=== PATIENT | male | born 1975 | race Caucasian/White ===

== ENCOUNTER 2017-07-25 16:13 | Emergency (ER) | payer OTHER ==
[2017-07-25 16:21] VITALS: BP 153/88; PULSE 74; RESP 18; TEMP 97.7; O2SAT 99
--- NOTE | 2017-07-25 16:44 | EDPHY ---
H & P Time Seen by Provider: 07/25/17 16:24 HPI/ROS: CHIEF COMPLAINT: Insomnia HISTORY OF PRESENT ILLNESS: Patient is a 41-year-old male with a history of schizophrenia and high cholesterol who presents emergency department with insomnia x3 nights. Patient states that he has only been able to sleep 3-5 hours per night. He thinks this is related to his recent weight loss. He has lost 50 lb to get to his current weight. Patient denies any stimulant use. He does not smoke. Denies alcohol use. Patient has no chest pain or shortness of breath. He has been taking his medications as directed REVIEW OF SYSTEMS: My complete review of systems is negative except as mentioned in the HPI. Past Medical/Surgical History: Includes schizophrenia, high cholesterol Past surgical history: Denies Social history: Patient does not smoke. Denies drugs or alcohol. Smoking Status: Never smoked Physical Exam: Vitals noted GENERAL: Well-appearing, in no acute distress, alert. HEENT: Eyes normal to inspection, normal pharynx, no signs of dehydration. NECK: [No thyromegaly, no lymphadenopathy, supple. RESPIRATORY: Clear to auscultation bilaterally, no rales, rhonchi or wheezing. CVS: Regular rate and rhythm, no rubs, murmurs, or gallops. ABDOMEN: Soft, nontender, nondistended, no organomegaly. BACK: Normal to inspection, no CVA tenderness. SKIN: Normal color, no rash, warm, dry. No pallor. EXTREMITIES: No pedal edema, no calf tenderness, no Homans sign or cords, no joint swelling. NEURO/PSYCH: Alert and oriented x3, normal mood and affect, normal motor sensory exam. No obvious cranial nerve deficit. Constitutional: Initial Vital Signs Temperature (C) 36.5 C 07/25/17 16:17 Heart Rate 74 07/25/17 16:17 Respiratory Rate 18 07/25/17 16:17 Blood Pressure 153/88 H 07/25/17 16:17 O2 Sat (%) 99 07/25/17 16:17 O2 Delivery Mode Room Air Allergies/Adverse Reactions: No Known Allergies Allergy (Verified 07/25/17 16:16) Home Medications: Medication Instructions Recorded Lurasidone HCl [Latuda] 80 mg PO 10/28/10 SIMVASTATIN [Zocor] 20 mg PO 10/28/10 clonazePAM [Klonopin] 1 mg PO 10/28/10 diphenhydrAMINE [Benadryl] 50 mg PO 10/28/10 Zoloft 100mg (*) 07/25/17 Zolpidem Tartrate [Ambien 5MG (*)] 5 mg PO HS #3 tab 07/25/17 Medical Decision Making ED Course/Re-evaluation: In the emergency department I discussed possible etiologies with the patient. I discussed treatment options. Patient was instructed to attempt sleep with Benadryl. It this does work is been given 3 tablets of sleeping aid. He is given warnings regarding the sleeping medication. He will not take the sleeping medication at the same time is Benadryl. He is instructed to take his sleep medication when he is in bed ready for sleep. Differential Diagnosis: My differential includes but is not limited to insomnia, anxiety, schizophrenia Departure - Departure Disposition: Home, Routine, Self-Care Clinical Impression: Insomnia Qualifiers: Insomnia type: unspecified Qualified Code(s): G47.00 - Insomnia, unspecified Condition: Good Instructions: Insomnia (ED) Additional Instructions: Take Benadryl to help yourself with sleep. If after a few hours the Benadryl is not working use her sleep aid. Make sure you are in bed when you take your medication Referrals: Toño Butt MD [Medical Doctor] - As per Instructions Prescriptions: Zolpidem Tartrate [Ambien 5MG (*)] 5 mg PO HS #3 tab
== END 2017-07-25 17:05 | disposition home or self-care (01) ==
DX: G47.00 Insomnia, unspecified (principal)